=== PATIENT | male | born 1985 | race African-American/Black ===

== ENCOUNTER 2019-08-21 23:46 | Emergency (ER) | payer BC, OTHER ==
[2019-08-22] MEDS ORDERED: Lidocaine Viscous Sol 2% 15 ml UD Cup ONE (00:06)
[2019-08-22] MEDS ORDERED: Mag-Al 1200 mg/1200 mg/30 ML UDCUP ONE (00:06)
== END 2019-08-22 01:50 | disposition home or self-care (01) ==
LOC: ERS 23:46
DX: U07.1 COVID-19 (principal); R10.9 Unspecified abdominal pain; J45.909 Unspecified asthma, uncomplicated
CPT/HCPCS: 96372; 99283; J0500

== ENCOUNTER 2019-08-22 18:11 | Emergency (ER) | payer BC, OTHER ==
[2019-08-22] MEDS ORDERED: Acetaminophen 500 MG TAB ONE (18:41)
[2019-08-22 18:43] LABS: #Monocytes 0.3 thou/uL (0.11-0.59); #Neutrophils 5.7 thou/uL (1.40-6.50); %Basophils 0.7 % (0.0-1.0); %Eosinophils 0.3 % (0.0-10.0); %Lymphocytes 14.5 % (21.0-51.0); %Monocytes 4.6 % (0.0-10.0); Hemoglobin 15.4 g/dL (14.0-18.0); Mean Corpuscular HGB CONC 34.5 g/dL (32.0-36.0); Mean Corpuscular Hemoglobin 29.8 pg (27.0-31.0); Mean Corpuscular Volume 86.3 fL (78.0-98.0); Mean Platelet Volume 7.7 fL (7.4-10.4); Platelet Count 276 thou/uL (130-400); RBC Distribution Width 12.1 % (11.5-14.5); Red Blood Cell (RBC) Count 5.16 mill/uL (4.70-6.10); White Blood Cell (WBC) Count 7.1 thou/uL (4.8-10.8)
[2019-08-22 19:24] LABS: ALT (SGPT) 34 U/L (8-55); AST (SGOT) 41 U/L (5-34); Albumin 4.2 g/dL (3.5-5.0); Alkaline Phosphatase 94 U/L (40-110); Anion Gap 15 mmol/L (10-20); BUN (Urea Nitrogen) 13 mg/dL (8.9-20.6); Bilirubin, Total 0.5 mg/dL (0.2-1.2); Calc. Creatinine Clearance 0 mL/min (70-130); Calcium 9.5 mg/dL (7.8-10.44); Carbon Dioxide 24 mmol/L (22-29); Chloride 101 mmol/L (98-107); Estimated GFR-MDRD 54; Globulin 3.8 g/dL (2.4-3.5); Glucose 114 mg/dL (70-105); Potassium 3.8 mmol/L (3.5-5.1); Sodium 136 mmol/L (136-145)
--- NOTE | 2019-08-22 19:52 | RAD ---
PORTABLE CHEST: Date: 08-22-2019 Provided Clinical History: Shortness of breath, Covid positive. Comparison: None FINDINGS: Heart size appears prominent, likely at least partially on the basis of portable technique. There are multifocal small areas of patchy airspace disease bilaterally, predominately in the mid to lower lamine g zones. No pleural fluid or pneumothorax apparent. IMPRESSION: Bilateral patchy airspace disease, compatible with pneumonia. POS: [facility]
== END 2019-08-22 20:16 | disposition home or self-care (01) ==
LOC: ERS 18:11
DX: U07.1 COVID-19 (principal)
CPT/HCPCS: 71045; 80053; 83605; 85025; 87040; 93005; 94760; 96360